=== PATIENT | male | born 1965 ===

== ENCOUNTER 2017-04-20 15:02 | Inpatient (IN) | payer MEDICARE, MEDICAID ==
[~2017-04-20] VITALS: Ht 190.5 cm; Wt 172.9 kg
[~2017-04-20 15:02] MED LIST: ADVA250A INH; ALBU.5I INH; ALBU17I INH; ASPI81 PO; BUME2TAB PO; HYDR10TA16 PO; LORA10TA7 PO; METO5TAB46 PO; NITR0.1D TD; PACE200T4 PO; PRED50TA PO; SPIR25 PO
[2017-04-20 15:15] VITALS: BP 129/68; PULSE 97; RESP 25; TEMP 98.7; O2SAT 100
[2017-04-20] MEDS ORDERED: FOLI800T PO (15:34)
[2017-04-20] MEDS ORDERED: DULO1CAP3 PO (15:34)
[2017-04-20] MEDS ORDERED: MONT10TA4 PO (15:34)
[2017-04-20] MEDS ORDERED: FERR325T18 PO (15:34)
[2017-04-20] MEDS ORDERED: METO50TA PO (15:34)
[2017-04-20] MEDS ORDERED: LYRI50CA PO (15:34)
[2017-04-20] MEDS ORDERED: OXYC-396 PO (15:34)
[2017-04-20] MEDS ORDERED: LISI2.5T3 PO (15:34)
[2017-04-20] MEDS ORDERED: SPIR25TA PO (15:34)
[2017-04-20] MEDS ORDERED: TIZA4CAP3 PO (15:34)
[2017-04-20] MEDS ORDERED: ALLO300T2 PO (15:34)
[2017-04-20] MEDS ORDERED: ATOR20TA15 PO (15:34)
[2017-04-20] MEDS ORDERED: TRAZ1TAB14 PO (15:34)
[2017-04-20 15:36] VITALS: BP_SYST 129; BP_SYST 150; BP_DIAS 63; BP_DIAS 68; PULSE 97; RESP 17; O2SAT 100
[2017-04-20] MEDS ORDERED: PLAV75TA29 PO (15:38)
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
--- NOTE | 2017-04-20 15:59 | RADRPT ---
EXAM DATE/TIME: 04/20/2017 15:43 [facility] COMPARISON: No previous studies available for comparison. INDICATIONS : Chest pain and shortness of breath. MEDICAL HISTORY : Myocardial infarction. Hypercholesterolemia. Chronic obstructive pulmonary disease. Asthma, CHF, Coronary artery disease SURGICAL HISTORY : Defibrillator, AICD, Pacemaker. ENCOUNTER: Initial ACUITY: 1 day PAIN SCORE: 6/10 LOCATION: Bilateral chest FINDINGS: Single lead AICD device in place. No significant focal pleural or parenchymal opacities. Cardiac silh ouette is mildly enlarged. Bony thorax is intact. CONCLUSION: 1. Compensated cardiomegaly. Skyler aVlle MD on April 20, 2017 at 15:56 Board Certified Radiologist. This report was verified electronically.
[2017-04-20 16:07] LABS: AUTOMATED NEUTROPHIL # 4.7 TH/MM3 (1.8-7.7); BASOPHIL % 0.7 % (0.0-2.0); EOSINOPHIL # 0.1 TH/MM3 (0-0.4); EOSINOPHIL % 0.9 % (0.0-4.0); HEMATOCRIT 37.7 % (39.0-51.0); HEMO FLAGS DIFF FINAL; LYMPH % 15.8 % (9.0-44.0); MEAN CELL VOLUME 77.8 FL (80.0-100.0); MEAN CORPUSCULAR HEMOGLOBIN 24.7 PG (27.0-34.0); MEAN CORPUSCULAR HGB CONC 31.7 % (32.0-36.0); MONO % 11.1 % (0.0-8.0); NEUT % 71.5 % (16.0-70.0); PLATELET COUNT 241 TH/MM3 (150-450); RED BLOOD COUNT 4.85 MIL/MM3 (4.50-5.90); RED CELL DISTRIBUTION WIDTH 19.7 % (11.6-17.2); WHITE BLOOD COUNT 6.6 TH/MM3 (4.0-11.0)
[2017-04-20 16:18] LABS: APTT (PATIENT) 24.1 SEC (24.3-30.1); PROTHROMBIN TIME - PATIENT 10.4 SEC (9.8-11.6)
[2017-04-20] MEDS ORDERED: MORPHINE SULFATE 4 MG/ML INJ IV PUSH ONE (16:30)
[2017-04-20 16:54] LABS: ANION GAP 5 MEQ/L (5-15); BICARBONATE 29.8 MEQ/L (21.0-32.0); BLOOD UREA NITROGEN 18 MG/DL (7-18); CHLORIDE 108 MEQ/L (98-107); GLOMERULAR FILTRATION RATE 50 ML/MIN (>89); MAGNESIUM 1.9 MG/DL (1.5-2.5); POTASSIUM 3.8 MEQ/L (3.5-5.1); SODIUM (NA) 143 MEQ/L (136-145)
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
[2017-04-20] MEDS ORDERED: IOHEXOL 350 MG/ML 10 ML VIAL (for RAD DIAG) IVCONTRAST ONE (19:10)
[2017-04-20 19:19] VITALS: BP 129/72; PULSE 80; RESP 18; O2SAT 100
--- NOTE | 2017-04-20 19:19 | PD ---
Data Data Last Documented VS Vital Signs Date Time Temp Pulse Resp B/P (MAP) Pulse Ox O2 Delivery O2 Flow Rate FiO2 04/20/17 15:36 97 17 129/68 (88) 100 Nasal Cannula 2.00 150/63 (92) 04/20/17 15:15 98.7 Orders Orders Electrocardiogram (04/20/17 15:26) Basic Metabolic Panel (Bmp) (04/20/17 15:26) Complete Blood Count With Diff (04/20/17 15:26) Magnesium (Mg) (04/20/17 15:26) Prothrombin Time / Inr (Pt) (04/20/17 15:26) Act Partial Throm Time (Ptt) (04/20/17 15:) Troponin I (04/20/17 15:) Chest, Single Ap (04/20/17 15:26) Ecg Monitoring (04/20/17 15:26) Bilateral Bp Monitoring (04/20/17 15:26) Iv Access Insert/Monitor (04/20/17 15:) Oximetry (04/20/17 15:26) Oxygen Administration (04/20/17 15:26) Sodium Chloride 0.9% Flush (Ns Flush) (04/20/17 15:30) Morphine Inj (Morphine Inj) (04/20/17 16:30) Us Leg Venous Doppler (04/20/17 ) D-Dimer (04/20/17 17:17) Ct Pulmonary Angiogram (04/20/17 ) Iohexol 350 Inj (Omnipaque 350 Inj) (04/20/17 19:10) Diet Heart Healthy (04/20/17 Dinner) Npo After Midnight W/ Po Meds (04/21/17 Breakfast) Labs Laboratory Tests Test 04/20/17 15:50 White Blood Count 6.6 TH/MM3 Red Blood Count 4.85 MIL/MM3 Hemoglobin 12.0 GM/DL Hematocrit 37.7 % Mean Corpuscular Volume 77.8 FL Mean Corpuscular Hemoglobin 24.7 PG Mean Corpuscular Hemoglobin Concent 31.7 % Red Cell Distribution Width 19.7 % Platelet Count 241 TH/MM3 Mean Platelet Volume 8.1 FL Neutrophils (%) (Auto) 71.5 % Lymphocytes (%) (Auto) 15.8 % Monocytes (%) (Auto) 11.1 % Eosinophils (%) (Auto) 0.9 % Basophils (%) (Auto) 0.7 % Neutrophils # (Auto) 4.7 TH/MM3 Lymphocytes # (Auto) 1.0 TH/MM3 Monocytes # (Auto) 0.7 TH/MM3 Eosinophils # (Auto) 0.1 TH/MM3 Basophils # (Auto) 0.0 TH/MM3 CBC Comment DIFF FINAL Differential Comment Prothrombin Time 10.4 SEC Prothromb Time International Ratio 1.0 RATIO Activated Partial Thromboplast Time 24.1 SEC D-Dimer Quantitative (PE/DVT) 0.88 MG/L FEU Blood Urea Nitrogen 18 MG/DL Creatinine 1.48 MG/DL Random Glucose 105 MG/DL Calcium Level 8.3 MG/DL Magnesium Level 1.9 MG/DL Sodium Level 143 MEQ/L Potassium Level 3.8 MEQ/L Chloride Level 108 MEQ/L Carbon Dioxide Level 29.8 MEQ/L Anion Gap 5 MEQ/L Estimat Glomerular Filtration Rate 50 ML/MIN Troponin I LESS THAN 0.02 NG/ML MDM Supervised Visit with [facility]: Yes Narrative Course The history, exam, and medical decision-making in the associated midlevel provider note were completed with my assistance. I reviewed and agree with the findings presented. I attest that I had a [id number] encounter with the patient on the same day, and personally performed and documented my assessment and findings in the medical record. *My assessment and Findings: This is a 51-year-old male who presents to the emergency department with left-sided chest discomfort. He did have a hip replacement over the summer. He is morbidly obese and has swelling of the right calf. Ultrasound of the right calf was negative. Labs were obtained including a troponin which was reassuring. EKG is nonischemic. Patient will be admitted to the chest pain center CT pulmonary angiogram is reassuring for risk stratification serial enzymes. He says he did have a stress test earlier this year but it was not normal. Diagnosis Primary Impression: Atypical chest pain Condition: Stable Miranda Ho MD Apr 20, 2017 19:19
--- NOTE | 2017-04-20 19:30 | RADRPT ---
EXAM DATE/TIME: 04/20/2017 18:57 [facility] COMPARISON: No previous studies available for comparison. INDICATIONS : Chest pain. IV CONTRAST: 75 cc Omnipaque 350 (iohexol) IV RADIATION DOSE: 25.48 CTDIvol (mGy) MEDICAL HISTORY : Congestive heart failure. SURGICAL HISTORY : Pacemaker. ENCOUNTER: Initial ACUITY: 1 day PAIN SCALE: 8/10 LOCATION: chest TECHNIQUE: Volumetric scanning of the chest was performed using a pulmonary embolism protocol MIP images were re constructed. Using automated exposure control and adjustment of the mA and/or kV according to patien t size, radiation dose was kept as low as reasonably achievable to obtain optimal diagnostic quality images. DICOM format image data is available electronically for review and comparison. Follow-up recommendations for detected pulmonary nodules are based at a minimum on nodule size and pa tient risk factors according to Fleischner Society Guidelines. FINDINGS: PULMONARY ARTERIES: No filling defects are seen in the pulmonary arteries through the segmental level. LUNGS: There is no consolidation or pneumothorax . No concerning pulmonary nodule is visualized. PLEURAE: There is no pleural thickening or pleural effusion. MEDIASTINUM: There is good visualization of the great vessels of the middle mediastinum. No evidence of mediastin al or hilar adenopathy/mass. Cardiomegaly and coronary artery calcifications are noted. MUSCULOSKELETAL: Mild degenerative changes and scoliosis of the thoracic spine are noted. MISCELLANEOUS: The visualized upper abdominal organs demonstrate no acute abnormality. Left subclavian AICD has its tip in the right ventricle. CONCLUSION: 1. No evidence of pulmonary embolism. 2. Cardiomegaly and coronary artery calcifications. 3. Mild degenerative changes and scoliosis of the thoracic spine are noted. Brad Manzo MD on April 20, 2017 at 19:25 Board Certified Radiologist. This report was verified electronically.
[2017-04-20 20:56] LABS: CREATINE KINASE 62 U/L (39-308)
[2017-04-20 21:07] VITALS: BP 123/73; PULSE 85; RESP 19; TEMP 98.3; O2SAT 100
[2017-04-20 23:27] LABS: CREATINE KINASE 74 U/L (39-308)
[2017-04-20 23:48] VITALS: BP 119/63; PULSE 90; RESP 19; TEMP 98.4; O2SAT 98
[2017-04-21] VITALS (11 sets, daily range): BP systolic 92–127; BP diastolic 45–68; PULSE 71–100; RESP 17–20; TEMP 97.7–98.8; O2SAT 95–99
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
[2017-04-21] MEDS: METOPROLOL TARTRATE 50 MG TAB PO SCH ×2 (09:06→21:00)
[2017-04-21] MEDS: DULoxetine HCl DR 60 MG CAP PO SCH (09:06)
[2017-04-21] MEDS: FOLIC ACID 1 MG TAB PO SCH (09:06)
[2017-04-21] MEDS: SPIRONOLACTONE 25 MG TAB PO SCH (09:06)
[2017-04-21] MEDS: SODIUM CHLORIDE 0.9% FLUSH 10 ML FLUSH IVF PRN (09:06)
[2017-04-21] MEDS: LISINOPRIL 5 MG TAB PO SCH (09:06)
[2017-04-21] MEDS: CLOPIDOGREL 75 MG TAB PO SCH (09:06)
[2017-04-21] MEDS: FERROUS SULFATE 325 MG (65 MG ELEMENTAL IRON) TAB PO SCH (09:06)
[2017-04-21] MEDS ORDERED: REGADENOSON INJ 0.4 MG/5 ML SYR ONE (09:37)
--- NOTE | 2017-04-21 12:29 | RADRPT ---
EXAM DATE/TIME: 04/21/2017 09:50 [facility] COMPARISON: No previous studies available for comparison. INDICATIONS : Chest pain. Angina. DOSE: 35 mCi Tc99m Myoview at stress. 11 mCi Tc99m Myoview at rest. 0.4 mg Lexiscan STRESS SYMPTOMS: Shortness of breath, neck tightness. EJECTION FRACTION: 32% MEDICAL HISTORY : Chronic obstructive pulmonary disease. Congestive heart failure. Diabetes mellitus type 2. SURGICAL HISTORY : Pacemaker. ENCOUNTER: Initial ACUITY: 1 day PAIN SCALE: 7/10 LOCATION: Left midsternal TECHNIQUE: The patient underwent pharmacologic stress with infusion of prescribed dose. Continuous ECG tracing was monitored during stress. Gated SPECT imaging was performed after stress and conventional SPECT i maging was performed at rest. The examination was performed on a SPECT/CT scanner, both attenuation and non-corrected datasets were reviewed. FINDINGS: DISTRIBUTION: The maximum perfused segment at stress is in the wall. PERFUSION STUDY: Fixed defect in the apical wall. There is redistribution in the anterior wall near the base. GATED STUDY: Dilated ventricle with global hypokinesia and EF of 32%. CONCLUSION: 1. Redemonstration of dilated ventricle with global hypokinesia. EF of 32%. 2. 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 RISK CATEGORY: High (>3% Annual Mortality Rate) Skyler Valle MD on April 21, 2017 at 12:23 Board Certified Radiologist. This report was verified electronically.
[2017-04-21] MEDS: NITROGLYCERIN 2% OINT 1 GM PACKET TOPICAL SCH ×2 (14:29→17:49)
[2017-04-21] MEDS ORDERED: ZOLPIDEM TARTRATE 5 MG TAB PO PRN (15:00)
[2017-04-21] MEDS ORDERED: oxyCODONE/ACETAMINOPHEN 10 MG/325 MG TAB PO PRN (15:00)
[2017-04-21] MEDS ORDERED: LACTULOSE SYRUP 20 GM/30 ML CUP PO PRN (15:00)
[2017-04-21] MEDS ORDERED: SENNOSIDES 8.6 MG TAB PO PRN (15:00)
[2017-04-21] MEDS ORDERED: NALOXONE HCL 0.4 MG/ML AMP IV PUSH PRN (15:00)
[2017-04-21] MEDS ORDERED: SODIUM CHLORIDE 0.9% FLUSH 10 ML FLUSH IV FLUSH PRN (15:00)
[2017-04-21] MEDS ORDERED: ONDANSETRON HCL 4 MG/2 ML VIAL IVP PRN (15:00)
[2017-04-21] MEDS ORDERED: ACETAMINOPHEN 325 MG TAB PO PRN (15:00)
[2017-04-21] MEDS ORDERED: MAGNESIUM HYDROXIDE SUSP 30 ML CUP PO PRN (15:00)
[2017-04-21] MEDS ORDERED: MORPHINE SULFATE 4 MG/ML INJ IV PUSH PRN ×3 (15:00)
[2017-04-21] MEDS ORDERED: PROCHLORPERAZINE 25 MG SUPP RECTAL PRN (15:00)
[2017-04-21] MEDS ORDERED: BISACODYL 10 MG SUPP RECTAL PRN (15:00)
[2017-04-21] MEDS ORDERED: oxyCODONE/ACETAMINOPHEN 5 MG/325 MG TAB PO PRN (15:00)
[2017-04-21] MEDS ORDERED: diphenhydrAMINE HCL 25 MG CAP PO ONE (15:15)
--- NOTE | 2017-04-21 15:17 | TR ---
Date Performed: 04/21/2017 Time Performed: 10:30:56 DOCTOR: Walter Palafox DRUG LIST: CLINICAL HISTORY: ANGINA REASON FOR TEST: REASON FOR ENDING: OBSERVATION: CONCLUSION: Lexiscan stress test was performed under standard four minute protocol. Radionuclid e was injected one minute prior to ending the test. No electrocardiographic abormalities were present to suggest ischemia. Nuclear imaging and interpretation are pending. COMMENTS:
--- NOTE | 2017-04-21 15:21 | EKG ---
Date Performed: 04/20/2017 Time Performed: 22:18:35 PTAGE: 51 years EKG: Sinus rhythm LEFT BUNDLE BRANCH BLOCK ABNORMAL ECG PREVIOUS TRACING : 04/20/2017 19.46 Since previous tracing, no significant change noted DOCTOR: Walter Palafox Interpretating Date/Time 04/21/2017 15:20:15
--- NOTE | 2017-04-21 15:23 | EKG ---
Date Performed: 04/20/2017 Time Performed: 15:14:36 PTAGE: 51 years EKG: Sinus rhythm LEFT BUNDLE BRANCH BLOCK ABNORMAL ECG Compared to PREVIOUS TRACING ,LBBB is new. DOCTOR: Walter Palafox Interpretating Date/Time 04/21/2017 15:22:35
--- NOTE | 2017-04-21 15:24 | EKG ---
Date Performed: 04/20/2017 Time Performed: 19:46:48 PTAGE: 51 years EKG: Left bundle branch block ABNORMAL ECG PREVIOUS TRACING : 04/20/2017 15.14 Since previous tracing, no significant change noted DOCTOR: Walter Palafox Interpretating Date/Time 04/21/2017 15:23:57
[2017-04-21] MEDS: ASPIRIN 325 MG TAB PO SCH (15:31)
[2017-04-21] MEDS: ALLOPURINOL 300 MG TAB PO SCH (15:31)
[2017-04-21] MEDS: DOCUSATE SODIUM 50 MG/SENNA 8.6 MG TAB PO SCH (21:00)
[2017-04-21] MEDS: ATORVASTATIN 20 MG TAB PO SCH (21:23)
[2017-04-21] MEDS: traZODone HCL 50 MG TAB PO SCH (21:23)
[2017-04-21] MEDS: SODIUM CHLORIDE 0.9% FLUSH 10 ML FLUSH IV FLUSH SCH (21:23)
[2017-04-21] MEDS: MONTELUKAST SODIUM 10 MG TAB PO SCH (21:23)
[2017-04-22] VITALS (10 sets, daily range): BP systolic 94–134; BP diastolic 50–62; PULSE 72–84; RESP 18–22; TEMP 97.5–98.4; O2SAT 94–97
[2017-04-22 05:54] LABS: AUTOMATED NEUTROPHIL # 3.9 TH/MM3 (1.8-7.7); BASOPHIL % 0.8 % (0.0-2.0); EOSINOPHIL # 0.1 TH/MM3 (0-0.4); EOSINOPHIL % 1.6 % (0.0-4.0); HEMATOCRIT 34.8 % (39.0-51.0); HEMO FLAGS DIFF FINAL; LYMPHOCYTE # 0.9 TH/MM3 (1.0-4.8); MEAN CELL VOLUME 77.5 FL (80.0-100.0); MEAN CORPUSCULAR HEMOGLOBIN 23.8 PG (27.0-34.0); MEAN CORPUSCULAR HGB CONC 30.7 % (32.0-36.0); MONO % 10.9 % (0.0-8.0); NEUT % 70.7 % (16.0-70.0); PLATELET COUNT 216 TH/MM3 (150-450); RED BLOOD COUNT 4.49 MIL/MM3 (4.50-5.90); RED CELL DISTRIBUTION WIDTH 19.2 % (11.6-17.2); WHITE BLOOD COUNT 5.5 TH/MM3 (4.0-11.0)
[2017-04-22] MEDS: NITROGLYCERIN 2% OINT 1 GM PACKET TOPICAL SCH ×4 (06:00→17:32)
[2017-04-22 06:15] LABS: ALT (GPT) 17 U/L (12-78); ANION GAP 6 MEQ/L (5-15); AST (GOT) 11 U/L (15-37); BICARBONATE 29.3 MEQ/L (21.0-32.0); BLOOD UREA NITROGEN 14 MG/DL (7-18); CHLORIDE 108 MEQ/L (98-107); GLOMERULAR FILTRATION RATE 76 ML/MIN (>89); POTASSIUM 3.6 MEQ/L (3.5-5.1); SODIUM (NA) 143 MEQ/L (136-145)
[2017-04-22 06:24] LABS: ALKALINE PHOSPHATASE 121 U/L (45-117); FREE T4 0.74 NG/DL (0.76-1.46); TOTAL BILIRUBIN ADULT 0.3 MG/DL (0.2-1.0)
[2017-04-22] MEDS: DOCUSATE SODIUM 50 MG/SENNA 8.6 MG TAB PO SCH ×2 (08:29→21:00)
[2017-04-22] MEDS: METOPROLOL TARTRATE 50 MG TAB PO SCH ×2 (08:29→21:05)
[2017-04-22] MEDS: SPIRONOLACTONE 25 MG TAB PO SCH (08:29)
[2017-04-22] MEDS: CLOPIDOGREL 75 MG TAB PO SCH (08:29)
[2017-04-22] MEDS: DULoxetine HCl DR 60 MG CAP PO SCH (08:29)
[2017-04-22] MEDS: ASPIRIN 325 MG TAB PO SCH (08:29)
[2017-04-22] MEDS: FERROUS SULFATE 325 MG (65 MG ELEMENTAL IRON) TAB PO SCH (08:29)
[2017-04-22] MEDS: ALLOPURINOL 300 MG TAB PO SCH (08:29)
[2017-04-22] MEDS: LISINOPRIL 5 MG TAB PO SCH (08:30)
[2017-04-22] MEDS: SODIUM CHLORIDE 0.9% FLUSH 10 ML FLUSH IV FLUSH SCH ×2 (08:30→21:06)
[2017-04-22] MEDS: FOLIC ACID 1 MG TAB PO SCH (08:30)
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
[2017-04-22] MEDS: RESP: ALBUTEROL 2.5 MG/IPRATROPIUM 0.5 MG NEB (PRN) NEB (12:30)
--- NOTE | 2017-04-22 15:04 | HHI.PR ---
Subjective Remarks Cardiac enzymes and symptoms led to stress test. Stress test was abnormal. Plan for heart catheter tomorrow. Objective Vital Signs Date Time Temp Pulse Resp B/P (MAP) Pulse Ox O2 Delivery O2 Flow Rate FiO2 04/22/17 12:45 82 04/22/17 12:32 95 21 04/22/17 11:50 97.5 80 20 94/50 (65) 95 04/22/17 08:31 82 04/22/17 07:44 97.6 74 20 115/58 (77) 97 04/22/17 03:23 98.0 76 18 108/51 (70) 95 04/21/17 23:30 97.7 79 18 122/59 (80) 95 04/21/17 20:22 98.4 79 17 92/45 (61) 97 04/21/17 19:36 21 04/21/17 16:25 100 04/21/17 15:35 98.1 99 20 122/65 (84) 95 I/O 04/21/17 04/21/17 04/21/17 04/22/17 04/22/17 04/22/17 07:00 15:00 23:00 07:00 15:00 23:00 Intake Total 240 ml Output Total 450 ml 200 ml Balance -450 ml -200 ml 240 ml Intake Oral 240 ml Output Urine Total 450 ml 200 ml # Voids 1 1 Result Diagram: 04/22/17 0507 04/22/17 0507 Objective Remarks GENERAL: NAD, A&Ox3 HEAD: Normocephalic. NECK: Supple, trachea midline. No lymphadenopathy. EYES: No scleral icterus. No injection or drainage. CARDIOVASCULAR: Regular rate and rhythm without murmurs, gallops, or rubs. RESPIRATORY: Breath sounds equal bilaterally. No accessory muscle use. GASTROINTESTINAL: Abdomen soft, non-tender, nondistended. MUSCULOSKELETAL: No cyanosis, or edema. SKIN: Warm and dry. NEURO: No focal neurological deficitis. A/P Problem List: (1) Angina at rest ICD Code: I20.8 - Other forms of angina pectoris (2) Acute coronary syndrome ICD Code: I24.9 - Acute ischemic heart disease, unspecified (3) Atypical chest pain ICD Code: R07.89 - Other chest pain Status: Acute Assessment and Plan Assessment and Plan 51-year-old male admitted secondary to chest pain Chest pain Angina Suspected acute coronary syndrome Congestive heart failure CAD Patient failed stress test Plan for her Tomorrow Cardiology following History of ejection fraction 26% Continue Plavix Hyperlipidemia Continue statin Chronic back pain No change to baseline treatment COPD No exacerbation Continue rosa milner Severe obesity Continue to work at weight loss DVT prophylaxis Patient on Plavix SCDs Luis Stanton MD Apr 22, 2017 15:04
[2017-04-22] MEDS ORDERED: diphenhydrAMINE HCL 50 MG/ML VIAL IV PUSH ONE (15:15)
[2017-04-22] MEDS: SODIUM CHLORIDE 0.9% FLUSH 10 ML FLUSH IVF PRN (15:34)
[2017-04-22] MEDS: MONTELUKAST SODIUM 10 MG TAB PO SCH (21:05)
[2017-04-22] MEDS: ATORVASTATIN 20 MG TAB PO SCH (21:05)
[2017-04-22] MEDS: traZODone HCL 50 MG TAB PO SCH (21:05)
[2017-04-23] VITALS: BP 96/63; PULSE 78; RESP 21; TEMP 97.5; O2SAT 96
[2017-04-23 00:20] VITALS: O2SAT 93
[2017-04-23] MEDS: RESP: ALBUTEROL 2.5 MG/IPRATROPIUM 0.5 MG NEB (PRN) NEB (00:20)
[2017-04-23] MEDS: NITROGLYCERIN 2% OINT 1 GM PACKET TOPICAL SCH ×5 (00:32→23:16)
[2017-04-23 04:00] VITALS: BP 121/57; PULSE 77; PULSE 81; RESP 19; TEMP 98; O2SAT 96
[2017-04-23 08:00] VITALS: BP 139/67; PULSE 71; PULSE 79; RESP 18; TEMP 97.7; O2SAT 95
--- NOTE | 2017-04-23 08:27 | PD.CARD.PN ---
Subjective Subjective Remarks resting comfortably. no chest pain or sob. Objective Medications Current Medications Medications (Trade) Dose Ordered Sig/Souleymane Route Start Time Stop Time Status Last Admin (NS Flush) 2 ml UNSCH PRN IVF 04/20/17 15:30 04/22/17 15:34 (Lipitor) 20 mg HS PO 04/21/17 21:00 04/22/17 21:05 (Plavix) 75 mg DAILY PO 04/21/17 09:00 04/22/17 08:29 (Cymbalta Dr) 60 mg DAILY PO 04/21/17 09:00 04/22/17 08:29 (Ferrous Sulfate) 325 mg DAILY PO 04/21/17 09:00 04/22/17 08:29 (Folate) 1 mg DAILY PO 04/21/17 09:00 04/22/17 08:30 (Lopressor) 50 mg BID PO 04/21/17 09:00 04/22/17 21:05 (Singulair) 10 mg HS PO 04/21/17 21:00 04/22/17 21:05 (Aldactone) 25 mg DAILY PO 04/21/17 09:00 04/22/17 08:29 (Prinivil) 2.5 mg DAILY PO 04/21/17 09:00 04/22/17 08:30 (Desyrel) 150 mg HS PO 04/21/17 21:00 04/22/17 21:05 (Roxicodone) 20 mg Q4H PRN PO 04/21/17 09:00 04/23/17 05:44 (Nitroglycerin 2% Oint) 1 inch Q6HR TOPICAL 04/21/17 14:15 04/23/17 05:40 (Zyloprim) 300 mg DAILY PO 04/21/17 15:00 04/22/17 08:29 (Zanaflex) 8 mg Q8H PRN PO 04/21/17 15:00 (NS Flush) 2 ml UNSCH PRN IV FLUSH 04/21/17 15:00 (NS Flush) 2 ml BID IV FLUSH 04/21/17 21:00 04/22/17 21:06 (Tylenol) 650 mg Q4H PRN PO 04/21/17 15:00 (Zofran Inj) 4 mg Q6H PRN IVP 04/21/17 15:00 (Compazine Supp) 25 mg Q12H PRN RECTAL 04/21/17 15:00 (Ambien) 5 mg HS PRN PO 04/21/17 15:00 04/23/17 00:37 (Percocet 10-325 Mg) 1 tab Q6H PRN PO 04/21/17 15:00 (Morphine Inj) 2 mg Q3H PRN IV PUSH 04/21/17 15:00 (Morphine Inj) 4 mg Q3H PRN IV PUSH 04/21/17 15:00 (Morphine Inj) 4 mg Q3H PRN IV PUSH 04/21/17 15:00 (Narcan Inj) 0.4 mg UNSCH PRN IV PUSH 04/21/17 15:00 (Malena-Colace) 1 tab BID PO 04/21/17 21:00 04/22/17 08:29 (Milk Of Magnesia Liq) 30 ml Q12H PRN PO 04/21/17 15:00 (Senokot) 17.2 mg Q12H PRN PO 04/21/17 15:00 (Dulcolax Supp) 10 mg DAILY PRN RECTAL 04/21/17 15:00 (Lactulose Liq) 30 ml DAILY PRN PO 04/21/17 15:00 (Aspirin) 325 mg DAILY PO 04/21/17 15:15 04/22/17 08:29 (Duoneb Neb) 1 ampule Q6HR NEB PRN NEB 04/22/17 11:30 04/23/17 00:20 (Benadryl Inj) 25 mg Q6HR PRN IV PUSH 04/22/17 21:00 Vital Signs / I&O Vital Signs Date Time Temp Pulse Resp B/P (MAP) Pulse Ox O2 Delivery O2 Flow Rate FiO2 04/23/17 04:00 77 04/23/17 04:00 98.0 81 19 121/57 (78) 96 04/23/17 00:20 93 21 04/23/17 00:00 97.5 78 21 96/63 (74) 96 04/22/17 23:46 74 04/22/17 20:00 77 04/22/17 20:00 98.4 72 20 134/62 (86) 94 04/22/17 18:20 98.1 72 22 130/58 (82) 95 04/22/17 15:14 97.6 84 22 116/60 (78) 95 04/22/17 12:45 82 04/22/17 12:32 95 21 04/22/17 11:50 97.5 80 20 94/50 (65) 95 04/22/17 08:31 82 I/O 04/22/17 04/22/17 04/22/17 04/23/17 04/23/17 04/23/17 07:00 15:00 23:00 07:00 15:00 23:00 Intake Total 240 ml 0 ml Output Total 950 ml Balance 240 ml -950 ml Intake Oral 240 ml 0 ml Output Urine Total 950 ml # Voids 1 1 # Bowel Movements 0 Physical Exam GENERAL: SKIN: Warm and dry. HEAD: Atraumatic. Normocephalic. EYES: Pupils equal and round. No scleral icterus. No injection or drainage. ENT: No nasal bleeding or discharge. . NECK: Trachea midline. No JVD. CARDIOVASCULAR: Regular rate and rhythm. No murmurs RESPIRATORY: No accessory muscle use. Clear to auscultation. Breath sounds equal bilaterally. GASTROINTESTINAL: Abdomen soft, non-tender, nondistended. MUSCULOSKELETAL: Extremities without clubbing, cyanosis, or edema. No obvious deformities. NEUROLOGICAL: Awake and alert. No obvious cranial nerve deficits. Normal speech. PSYCHIATRIC: Appropriate mood and affect; insight and judgment normal. Laboratory Laboratory Tests Test 04/20/17 15:50 04/20/17 21:55 04/22/17 05:07 Prothrombin Time 10.4 SEC Prothromb Time International Ratio 1.0 RATIO Activated Partial Thromboplast Time 24.1 SEC D-Dimer Quantitative (PE/DVT) 0.88 MG/L FEU Total Creatine Kinase 74 U/L Troponin I LESS THAN 0.02 NG/ML White Blood Count 5.5 TH/MM3 Red Blood Count 4.49 MIL/MM3 Hemoglobin 10.7 GM/DL Hematocrit 34.8 % Mean Corpuscular Volume 77.5 FL Mean Corpuscular Hemoglobin 23.8 PG Mean Corpuscular Hemoglobin Concent 30.7 % Red Cell Distribution Width 19.2 % Platelet Count 216 TH/MM3 Mean Platelet Volume 7.8 FL Neutrophils (%) (Auto) 70.7 % Lymphocytes (%) (Auto) 16.0 % Monocytes (%) (Auto) 10.9 % Eosinophils (%) (Auto) 1.6 % Basophils (%) (Auto) 0.8 % Neutrophils # (Auto) 3.9 TH/MM3 Lymphocytes # (Auto) 0.9 TH/MM3 Monocytes # (Auto) 0.6 TH/MM3 Eosinophils # (Auto) 0.1 TH/MM3 Basophils # (Auto) 0.0 TH/MM3 CBC Comment DIFF FINAL Differential Comment Blood Urea Nitrogen 14 MG/DL Creatinine 1.03 MG/DL Random Glucose 105 MG/DL Total Protein 6.2 GM/DL Albumin 2.8 GM/DL Calcium Level 8.1 MG/DL Phosphorus Level 3.0 MG/DL Magnesium Level 2.0 MG/DL Alkaline Phosphatase 121 U/L Aspartate Amino Transf (AST/SGOT) 11 U/L Alanine Aminotransferase (ALT/SGPT) 17 U/L Total Bilirubin 0.3 MG/DL Sodium Level 143 MEQ/L Potassium Level 3.6 MEQ/L Chloride Level 108 MEQ/L Carbon Dioxide Level 29.3 MEQ/L Anion Gap 6 MEQ/L Estimat Glomerular Filtration Rate 76 ML/MIN Free Thyroxine 0.74 NG/DL Thyroid Stimulating Hormone 3rd Gen 1.640 uIU/ML Assessment and Plan Problem List: (1) Acute coronary syndrome ICD Codes: I24.9 - Acute ischemic heart disease, unspecified (2) Atypical chest pain ICD Codes: R07.89 - Other chest pain Status: Acute Assessment and Plan 51 yo M with CAD, afib, HTN and cardiomyopathy with AICD in place. chest pain- currently asymptomatic. abnormal stress test. will plan for [facility] this afternoon. light breakfast ok for this morning. Xochitl Garza Apr 23, 2017 08:27
[2017-04-23] MEDS: FOLIC ACID 1 MG TAB PO SCH (08:44)
[2017-04-23] MEDS: METOPROLOL TARTRATE 50 MG TAB PO SCH ×2 (08:44→21:34)
[2017-04-23] MEDS: FERROUS SULFATE 325 MG (65 MG ELEMENTAL IRON) TAB PO SCH (08:44)
[2017-04-23] MEDS: ASPIRIN 325 MG TAB PO SCH (08:44)
[2017-04-23] MEDS: DULoxetine HCl DR 60 MG CAP PO SCH (08:44)
[2017-04-23] MEDS: LISINOPRIL 5 MG TAB PO SCH (08:45)
[2017-04-23] MEDS: ALLOPURINOL 300 MG TAB PO SCH (08:45)
[2017-04-23] MEDS: CLOPIDOGREL 75 MG TAB PO SCH (08:45)
[2017-04-23] MEDS: SPIRONOLACTONE 25 MG TAB PO SCH (08:45)
[2017-04-23] MEDS: DOCUSATE SODIUM 50 MG/SENNA 8.6 MG TAB PO SCH ×2 (08:45→21:33)
[2017-04-23] MEDS: diphenhydrAMINE HCL 50 MG/ML VIAL IV PUSH PRN ×2 (08:56→21:33)
[2017-04-23] MEDS: SODIUM CHLORIDE 0.9% FLUSH 10 ML FLUSH IV FLUSH SCH ×2 (11:46→21:36)
[2017-04-23 12:00] VITALS: BP 133/62; PULSE 65; RESP 18; TEMP 97.3; O2SAT 96
--- NOTE | 2017-04-23 14:57 | HHI.PR ---
Subjective Remarks Patient seen this morning at 9 AM. Says he is feeling well. Denies any chest pain or shortness of breath currently. Objective Vital Signs Date Time Temp Pulse Resp B/P (MAP) Pulse Ox O2 Delivery O2 Flow Rate FiO2 04/23/17 12:00 97.3 65 18 133/62 (85) 96 04/23/17 08:00 79 04/23/17 08:00 97.7 71 18 139/67 (91) 95 04/23/17 04:00 77 04/23/17 04:00 98.0 81 19 121/57 (78) 96 04/23/17 00:20 93 21 04/23/17 00:00 97.5 78 21 96/63 (74) 96 04/22/17 23:46 74 04/22/17 20:00 77 04/22/17 20:00 98.4 72 20 134/62 (86) 94 04/22/17 18:20 98.1 72 22 130/58 (82) 95 04/22/17 15:14 97.6 84 22 116/60 (78) 95 I/O 04/22/17 04/22/17 04/22/17 04/23/17 04/23/17 04/23/17 07:00 15:00 23:00 07:00 15:00 23:00 Intake Total 240 ml 0 ml Output Total 950 ml Balance 240 ml -950 ml Intake Oral 240 ml 0 ml Output Urine Total 950 ml # Voids 1 1 # Bowel Movements 0 Result Diagram: 04/22/17 0507 04/22/17 0507 Objective Remarks GENERAL: Patient sitting up in bed. Appears comfortable. SKIN: Warm and dry. HEAD: Normocephalic. EYES: No scleral icterus. No injection or drainage. NECK: Supple, trachea midline. No JVD. CARDIOVASCULAR: Regular rate and rhythm without murmurs, gallops, or rubs. RESPIRATORY: Breath sounds equal bilaterally. No accessory muscle use. GASTROINTESTINAL: Abdomen soft, non-tender, nondistended. MUSCULOSKELETAL: No cyanosis, or edema. BACK: Nontender without obvious deformity. No CVA tenderness. A/P Assessment and Plan 51-year-old male admitted secondary to chest pain //Chest pain //Angina //Suspected acute coronary syndrome //Congestive heart failure //CAD Patient failed stress test Cardiology following History of ejection fraction 26% Continue Plavix = Plan for cardiac catheterization this afternoon as per cardiology. Appreciate assistance. //Hyperlipidemia Continue statin //Chronic back pain No change to baseline treatment //COPD No exacerbation Continue duo nebs //Severe obesity Continue to work at weight loss Discharge Planning Home pending cardiology clearance. Catheterization today. Jose Diaz MD Apr 23, 2017 14:57
[2017-04-23] MEDS ORDERED: HEPARIN SODIUM - IV 10,000 UNITS/10 ML VIAL ONE (15:52)
[2017-04-23] MEDS ORDERED: MIDAZOLAM HCL 2 MG/2 ML VIAL ONE (15:52)
[2017-04-23 15:54] LABS: HEMOGLOBIN A1b 1.1 %; HEMOGLOBIN Ao 84.7 %; HEMOGLOBIN F 1.1 %; HEMOGLOBIN LA1C 1.9 %; HEMOGLOBIN P3 3.8 %
--- NOTE | 2017-04-23 16:15 | CATHPROC ---
[employer] HIS Report Study Information Study Number Scheduled Start Study Start [id number] 04/23/2017 Apr 23 2017 3:34PM Referring Institution Admit Source Facility Department 1 Emergency department [facility] - [facility] Physician and Clinical Staff Initial Henrik Schulz Warehouse Operator Bo Haji,RN Recorder Florinda Fraser,RT(R) (BS) Momoub Roselyn Galarza RCIS TECH2 Procedures Performed Procedure Location (Site) Vessel Name Coronary Angiograms LCA Left Coronary Coronary Angiograms RCA Right Coronary L Heart Cath Wire insertion Radial (right) Radial Art. Equipment Time Senior Embedded Software Engineer Description Size Mfg Part Number Used/Scraped TRANSDUCER, TRUWAVE [id number] 15:36 BABIN BAPTISTE * Used W/STOCKCOCK *[id number] *[id number] 15:36 Retail Rocket PACK, CCL CUSTOM * Used *[id number] 15:36 Retail Rocket SUPPORT, ARTERIAL ADULT [id number] *[id number] Used [id number] 15:36 WISHI PACER PEN, SKIN DUAL W/ RULER * Used *[id number] 16:05 MEDTRONIC JL 3.5 DXTERITY CATHETER FR 5 [id number] Used BAND, RADIAL COMPRESSION TR [id number] 16:08 [place] 29CM Used LARGE 29 *[id number] SHEATH, FR6 RADIAL PRELUDE 15:36 [place] FR 6 [id number] Used EASE 11CM SHEATH, FR6 RADIAL PRELUDE 16:00 [place] FR 6 [id number] Used EASE 11CM [id number] 15:36 [place] WIRE, EXCHANGE 260CM 3MMJ 260CM Used *[id number] 15:36 NYCOMED OMNIPAQUE, 350 MG, 150ML 150ML [id number] Used [id number] 15:36 ALCAZAR oneforty BLANKET,WARM AIR CCL * Used *[id number] History: Current Medications Medication Dosage/Unit Route Frequency Last Date/Time Taken Statins (any) Beta Josef ASA PLAVIX History: Allergies Allergy Reaction No Known Allergies History: Risk Factors Family History of Hypertension Dyslipidemia Previous [place] Previous Heart Failure Premature CAD No No No No No Prior Valve Prior PCI Prior CABG Surgery No No No Cerebrovascular Peripheral Artery Chronic Lung On Dialysis Diabetes Disease Disease Disease No No No No No History: Stress Tests Stress or Imaging Studies Performed Yes Standard Exercise Stress Test No Stress Echo No Stress Test SPECT Yes Stress Test CMR No Cardiac CTA Coronary Calcium Score No No History: Other Current Smoker No Labs Hgb (g/dl) Hct (%) WBC (l/cumm) Platelets (thousands) 11.60-17.00 35.00-51.00 4.00-11.00 150.00-450.00 10.7 34.8 5.5 216 Glucose (mg/dl) BUN (mg/dl) Creatinine (mg/dl) BUN:Creatinine (1:x) 74.00-106.00 7.00-18.00 0.50-1.30 10.00-20.00 105 14 1.0 14 Na (meq/l) K (meq/l) 136.00-145.00 3.50-5.10 143 3.6 INR (PTT:PT) 0.90-1.10 1 Troponin I (ng/ml) CPK (u/l) CPK-MB (ng/ML) 0.02-0.05 26.00-308.00 0.50-3.60 0.02 74 Not Drawn Medication Medication Total Dose (Bolus/Oral) Medication Total Dosage/Unit 1% XYLOCAINE 1 mL FENTANYL 50 mcg HEPARIN 2000 units NTG (IC) 200 mcg VERSED 1 mg Medications (Bolus/Oral) Medication Time Given Dosage/Unit Administered By Reason VERSED 04/23/2017 3:55:53 PM 1 mg Bo Haji 1 mg VERSED given in lab by Bo Haji RN in Left Antecubital via Peripheral IV. FENTANYL 04/23/2017 3:55:58 PM 50 mcg Bo Haij 50 mcg FENTANYL given in lab by Bo Haji RN in Left Antecubital via Peripheral IV. 1% XYLOCAINE 04/23/2017 3:58:40 PM 1 mL Henrik Lua 1 mL 1% XYLOCAINE given in lab by Henrik Lua in Right Radial via Subcutaneous. NTG (IC) 04/23/2017 4:01:04 PM 200 mcg Henrik Lua 200 mcg NTG (IC) given in lab by Henrik Lua in Right Radial via Intra-arterial. HEPARIN 04/23/2017 4:01:54 PM 2000 units Bo Haji 2000 units HEPARIN given in lab by Bo Haji, OSCAR in Left Antecubital via Peripheral IV. Medication (Drip) Medication Time Given Dosage/Unit Concentration/Unit Diluent (ml) Solutio n IV Solutions 04/23/2017 3:34:55 PM 0 mL (IV) 500 NaCl .9 IV Solutions given in lab by Bo Haji RN in Left Antecubital via Peripheral IV. Pump/Drip Flow = 30 ml/hr using NaCl .9. Initial Case Assessment Cardiovascular HR Rhythm NIBP Chest Pain 68 reg 137/72 0 Edema Present Skin color Skin None Normal Warm Dry Circulatory - Right Pulses Dorsalis Pedis Femoral Radial 2 2 2 Scale (0,1,2,3,4,d) Scale (0,1,2,3,4,d) Circulatory - Lower Extremities Color Lower Right Color Lower Left Normal Normal Neurological State Oriented to time-place- Alert Moves all extremities person Respiration - General Respiration Rate SpO2 (%) (B/min) 13 98 Chronological Log Time Study Chronological Log 15:32:11 Patient arrived via Bed. 15:32:16 Patient Name, D.O.B, / Armband Verified By R.N. 15:34:18 Consent signed by the physician and the patient and verified by the [employer] [facility] staff. 15:34:20 Pre-op and post- op instructions given; patient acknowledges understanding of instructions. 15:34:21 Verbal Stimulation=2 Physical Stimulation=2 Airway=2 Respiration=2 TOTAL=8. (0=absent, 1=li mited, 2=present) 15:34:34 Presedation assessment performed by [employer] [facility] RN. 15:34:41 Allens test performed on the right radial and ulnar artery. 15:34:46 Patient has been NPO for More than 6Hrs. 15:34:49 Skin Breakdown non per pt 15:34:51 Patient Warmer Placed on the Table. 15:34:52 Buck Prominences Protected 15:34:53 A # 20 IV was noted in the Antecubital (left). Grade = 0 IV Solutions given in lab by Bo Haji, RN in Left Antecubital via Peripheral IV. Pump/Dri p Flow = 30 ml/hr using 15:34:55 NaCl .9. 15:34:58 History and physical on the chart or being dictated. Assessment: Initial Case, HR=68 BPM, Rhythm=reg, DQXD=152/72 mmhg, Chest Pain=0, Edema=None, Co jerry=Normal, Skin = Warm, Dry Right Pulses: Edward Ped=2, Femoral=2, Radial=2 15:35:00 Lower Right Extremities: Color=Normal Lower Left Extremities: Color=Normal Neurological: State=Alert, Ox3, BERMUDEZ Respiration: Resp=13 B/min, SpO2=98 % Vitals capture started with the following parameters, Patient=Adult, Interval=5 min, Initial Pr vleczd=016 mmHg, 15:40:56 Deflation Rate=5 mmHg, Cuff placed on Left Arm 15:42:54 HR=68 bpm, LEPK=809/72 mmhg, SpO2=95.0 %, Pain=0, Nilton=10, Juárez=2 15:46:33 HR=74 bpm, ZFIQ=217/79 mmhg, SpO2=98.0 %, Resp=11 B/min, Pain=0, Nilton=10, Juárez=2 15:49:21 Right Radial and right groin prepped with 2% chlorhexidine, and draped after a 3 min. waiti ng time. 15:51:34 HR=71 bpm, PPEB=069/88 mmhg, SpO2=99.0 %, Resp=15 B/min, Pain=0, Nilton=10, Juárez=2 15:52:23 Reference ECG taken 15:55:53 1 mg VERSED given in lab by Bo Haji, OSCAR in Left Antecubital via Peripheral IV. 15:55:58 50 mcg FENTANYL given in lab by Bo Haji RN in Left Antecubital via Peripheral IV. 15:56:31 HR=77 bpm, WLAX=468/92 mmhg, SpO2=99 %, Resp=27 B/min, Pain=0, Nilton=10, Juárez=2 15:56:43 Pressure channel 1 zero failed. 15:56:50 Pressure channel 1 zeroed. Time Out. Correct patient, correct procedure, correct physician, power injector not loaded with contrast with surgical 15:58:31 team present. Time Out Concurred by MD and individual staff in procedure. 15:58:39 Case Start 15:58:40 1 mL 1% XYLOCAINE given in lab by Henrik Lua in Right Radial via Subcutaneous. 15:59:29 Access site was right Radial Artery. 16:00:44 In the Radial (right) the SHEATH, FR6 RADIAL PRELUDE EASE 11CM FR [address] by Henrik Lua. 16:01:04 200 mcg NTG (IC) given in lab by Henrik Lua in Right Radial via Intra-arterial. 16:01:34 HR=68 bpm, WJEN=735/77 mmhg, SpO2=97.0 %, Resp=12 B/min, Pain=0, Nilton=10, Juárez=2 A JR 5.0 INFINITI CATHETER FR 5 was advanced over a wire. OMNIPAQUE, 350 MG, 150ML 150ML was us ed for 16:01:42 injections. 16:01:54 2000 units HEPARIN given in lab by Bo Haji RN in Left Antecubital via Peripheral IV . Recorded Pressure: LV, HR=75, Condition=Condition 1 16:02:14 (Left Ventricle) LV 104/7/12 Recorded Pressure: LV, Ao, HR=74, Condition=Condition 1 16:02:19 (Left Ventricle) LV 108/9/14, (Aorta) Ao 100/65/80 16:02:55 The RCA was injected and visualized at various angles. OMNIPAQUE, 350 MG, 150ML 150ML used . After removing the current catheter a JL 3.5 DXTERITY CATHETER FR 5 was advanced over a WIRE, E XCHANGE 260CM 16:03:52 3MMJ 260CM. 16:05:04 The LCA was injected and visualized at various angles. OMNIPAQUE, 350 MG, 150ML 150ML used . 16:06:33 HR=83 bpm, AXJF=883/73 mmhg, SpO2=97.0 %, Resp=11 B/min, Pain=0, Nilton=10, Juárez=2 16:06:42 A WIRE, EXCHANGE 260CM 3MMJ 260CM was inserted via Radial (right). 16:06:50 Catheter was removed 16:06:52 Wire removed 16:06:56 Case End 16:07:13 Catheter(s) removed without difficulty Radial Compression Device Used. 14 mLs of air placed in BAND, RADIAL COMPRESSION TR LARGE 29 29 CM. Affected 16:07:17 hand 100 % O2 saturation. 16:07:58 No case complications noted. 16:08:12 Bedside Report will be given. 16:08:16 A Left Heart Cath was performed. 16:11:34 HR=86 bpm, MFIP=108/73 mmhg, SpO2=99.0 %, Resp=16 B/min, Pain=0, Nilton=10, Juárez=2 16:17:41 Patient moved to stretcher End Study - Contrast Media Used In Study Contrast Total Opened (mL) Total Used (mL) Total Wasted (mL) Omnipaque 30 30 0 End Study - Maximum Contrast Load Max Contrast Load (mL) 869.1 End Study - Radiation Exposure Fluoro Time (minutes) 1.0 End Study - Sheaths Sheaths Pulled By Sheath Hold Time (min) Roselyn Galarza End Study - Patient Disposition Complications Transferred To Interventional Outcome No [employer] Holding No attempt made
--- NOTE | 2017-04-23 16:49 | MA ---
cc: DIOR SCHILLING DATE 04/23/2017 INDICATION Chest pain. PROCEDURE PERFORMED 1. Fluoroscopy with interpretation. 2. Coronary angiography. 3. Left heart catheterization. METHOD Risks, benefits and alternatives discussed with the patient. The patient understood and consented to the procedure. DETAILS OF PROCEDURE The patient brought to the catheterization lab and placed on the catheterization table. Right wrist was prepped and draped in sterile fashion. The right wrist was anesthetized with 2% Lidocaine. The right radial artery was cannulated and a 6 [place] 7 cm sheath was placed without difficulty. 200 micrograms of 100 mcg of nitroglycerine in addition to 3000 units of intravenous heparin were administered. LEFT HEART CATHETERIZATION Intraventricular hemodynamics measured at 110/12 mmHg. CORONARY ANGIOGRAPHY 1. Left main coronary artery is angiographically normal. 2. The left anterior descending coronary artery has minor luminal irregularities in the mid segment. Diagonal branch angiographically normal. 3. Left circumflex angiographically normal. 4. Right coronary is a dominant vessel giving rise to a posterior descending branch. Right coronary artery has mild luminal irregularities. CONCLUSIONS Mild amount of obstructive coronary disease. PLAN We will monitor the patient closely for post procedural complications. 5. Normal left-sided filling pressures. PLAN The patient will be monitored closely for any post-procedural complications. Stress test was a false positive. The patient has nonischemic cardiomyopathy with severely reduced ejection fraction but defibrillator in place and seems to be well-compensated from a congestive heart failure standpoint. Resume prior medical regimen. Follow up with outpatient etcher aircraft. MD AL Jensen/SHANNAN /4:16 PM /4:31 PM STEVEN
[2017-04-23] MEDS ORDERED: IOHEXOL 350 MG/ML 50 ML BTL (for Cath Lab) OTHER ONE (16:54)
[2017-04-23 20:00] VITALS: BP 99/48; PULSE 92; RESP 18; TEMP 97.5; O2SAT 95
[2017-04-23] MEDS: ATORVASTATIN 20 MG TAB PO SCH (21:34)
[2017-04-23] MEDS: traZODone HCL 50 MG TAB PO SCH (21:35)
[2017-04-23] MEDS: MONTELUKAST SODIUM 10 MG TAB PO SCH (21:35)
[2017-04-24] VITALS (7 sets, daily range): BP systolic 97–114; BP diastolic 54–64; PULSE 75–93; RESP 18–20; TEMP 97.5–97.9; O2SAT 93–97
[2017-04-24] MEDS: NITROGLYCERIN 2% OINT 1 GM PACKET TOPICAL SCH ×2 (04:41→12:00)
[2017-04-24] MEDS: diphenhydrAMINE HCL 50 MG/ML VIAL IV PUSH PRN (04:50)
[2017-04-24] MEDS: RESP: ALBUTEROL 2.5 MG/IPRATROPIUM 0.5 MG NEB (PRN) NEB (05:23)
--- NOTE | 2017-04-24 08:27 | PD.CARD.PN ---
Subjective Subjective Remarks resting comfortably. no chest pain or sob. Objective Medications Current Medications Medications (Trade) Dose Ordered Sig/Souleymane Route Start Time Stop Time Status Last Admin (NS Flush) 2 ml UNSCH PRN IVF 04/20/17 15:30 04/22/17 15:34 (Lipitor) 20 mg HS PO 04/21/17 21:00 04/23/17 21:34 (Plavix) 75 mg DAILY PO 04/21/17 09:00 04/23/17 08:45 (Cymbalta Dr) 60 mg DAILY PO 04/21/17 09:00 04/23/17 08:44 (Ferrous Sulfate) 325 mg DAILY PO 04/21/17 09:00 04/23/17 08:44 (Folate) 1 mg DAILY PO 04/21/17 09:00 04/23/17 08:44 (Lopressor) 50 mg BID PO 04/21/17 09:00 04/23/17 21:34 (Singulair) 10 mg HS PO 04/21/17 21:00 04/23/17 21:35 (Aldactone) 25 mg DAILY PO 04/21/17 09:00 04/23/17 08:45 (Prinivil) 2.5 mg DAILY PO 04/21/17 09:00 04/23/17 08:45 (Desyrel) 150 mg HS PO 04/21/17 21:00 04/23/17 21:35 (Roxicodone) 20 mg Q4H PRN PO 04/21/17 09:00 04/24/17 04:40 (Nitroglycerin 2% Oint) 1 inch Q6HR TOPICAL 04/21/17 14:15 04/24/17 04:41 (Zyloprim) 300 mg DAILY PO 04/21/17 15:00 04/23/17 08:45 (Zanaflex) 8 mg Q8H PRN PO 04/21/17 15:00 (NS Flush) 2 ml UNSCH PRN IV FLUSH 04/21/17 15:00 (NS Flush) 2 ml BID IV FLUSH 04/21/17 21:00 04/23/17 21:36 (Tylenol) 650 mg Q4H PRN PO 04/21/17 15:00 (Zofran Inj) 4 mg Q6H PRN IVP 04/21/17 15:00 (Compazine Supp) 25 mg Q12H PRN RECTAL 04/21/17 15:00 (Ambien) 5 mg HS PRN PO 04/21/17 15:00 04/23/17 00:37 (Percocet 10-325 Mg) 1 tab Q6H PRN PO 04/21/17 15:00 (Morphine Inj) 2 mg Q3H PRN IV PUSH 04/21/17 15:00 (Morphine Inj) 4 mg Q3H PRN IV PUSH 04/21/17 15:00 (Morphine Inj) 4 mg Q3H PRN IV PUSH 04/21/17 15:00 (Narcan Inj) 0.4 mg UNSCH PRN IV PUSH 04/21/17 15:00 (Malena-Colace) 1 tab BID PO 04/21/17 21:00 04/23/17 21:33 (Milk Of Magnesia Liq) 30 ml Q12H PRN PO 04/21/17 15:00 (Senokot) 17.2 mg Q12H PRN PO 04/21/17 15:00 (Dulcolax Supp) 10 mg DAILY PRN RECTAL 04/21/17 15:00 (Lactulose Liq) 30 ml DAILY PRN PO 04/21/17 15:00 (Aspirin) 325 mg DAILY PO 04/21/17 15:15 04/23/17 08:44 (Duoneb Neb) 1 ampule Q6HR NEB PRN NEB 04/22/17 11:30 04/24/17 05:23 (Benadryl Inj) 25 mg Q6HR PRN IV PUSH 04/22/17 21:00 04/24/17 04:50 Vital Signs / I&O Vital Signs Date Time Temp Pulse Resp B/P (MAP) Pulse Ox O2 Delivery O2 Flow Rate FiO2 04/24/17 05:23 97 21 04/24/17 04:00 97.7 85 18 97/54 (68) 94 04/24/17 03:56 90 04/24/17 00:40 75 04/24/17 00:00 97.9 76 18 114/63 (80) 94 04/23/17 20:00 97.5 92 18 99/48 (65) 95 04/23/17 12:00 97.3 65 18 133/62 (85) 96 I/O 04/23/17 04/23/17 04/23/17 04/24/17 04/24/17 04/24/17 07:00 15:00 23:00 07:00 15:00 23:00 Intake Total 0 ml Output Total 950 ml Balance -950 ml Intake Oral 0 ml Output Urine Total 950 ml # Voids 2 # Bowel Movements 0 Physical Exam GENERAL: SKIN: Warm and dry. HEAD: Atraumatic. Normocephalic. EYES: Pupils equal and round. No scleral icterus. No injection or drainage. ENT: No nasal bleeding or discharge. . NECK: Trachea midline. No JVD. CARDIOVASCULAR: Regular rate and rhythm. No murmurs RESPIRATORY: No accessory muscle use. Clear to auscultation. Breath sounds equal bilaterally. GASTROINTESTINAL: Abdomen soft, non-tender, nondistended. MUSCULOSKELETAL: Extremities without clubbing, cyanosis, or edema. No obvious deformities. NEUROLOGICAL: Awake and alert. No obvious cranial nerve deficits. Normal speech. PSYCHIATRIC: Appropriate mood and affect; insight and judgment normal. Laboratory Laboratory Tests Test 04/20/17 15:50 04/20/17 21:55 04/22/17 05:07 Prothrombin Time 10.4 SEC Prothromb Time International Ratio 1.0 RATIO Activated Partial Thromboplast Time 24.1 SEC D-Dimer Quantitative (PE/DVT) 0.88 MG/L FEU Total Creatine Kinase 74 U/L Troponin I LESS THAN 0.02 NG/ML White Blood Count 5.5 TH/MM3 Red Blood Count 4.49 MIL/MM3 Hemoglobin 10.7 GM/DL Hematocrit 34.8 % Mean Corpuscular Volume 77.5 FL Mean Corpuscular Hemoglobin 23.8 PG Mean Corpuscular Hemoglobin Concent 30.7 % Red Cell Distribution Width 19.2 % Platelet Count 216 TH/MM3 Mean Platelet Volume 7.8 FL Neutrophils (%) (Auto) 70.7 % Lymphocytes (%) (Auto) 16.0 % Monocytes (%) (Auto) 10.9 % Eosinophils (%) (Auto) 1.6 % Basophils (%) (Auto) 0.8 % Neutrophils # (Auto) 3.9 TH/MM3 Lymphocytes # (Auto) 0.9 TH/MM3 Monocytes # (Auto) 0.6 TH/MM3 Eosinophils # (Auto) 0.1 TH/MM3 Basophils # (Auto) 0.0 TH/MM3 CBC Comment DIFF FINAL Differential Comment Blood Urea Nitrogen 14 MG/DL Creatinine 1.03 MG/DL Random Glucose 105 MG/DL Total Protein 6.2 GM/DL Albumin 2.8 GM/DL Calcium Level 8.1 MG/DL Phosphorus Level 3.0 MG/DL Magnesium Level 2.0 MG/DL Alkaline Phosphatase 121 U/L Aspartate Amino Transf (AST/SGOT) 11 U/L Alanine Aminotransferase (ALT/SGPT) 17 U/L Total Bilirubin 0.3 MG/DL Sodium Level 143 MEQ/L Potassium Level 3.6 MEQ/L Chloride Level 108 MEQ/L Carbon Dioxide Level 29.3 MEQ/L Anion Gap 6 MEQ/L Estimat Glomerular Filtration Rate 76 ML/MIN Hemoglobin A1c 5.9 % Free Thyroxine 0.74 NG/DL Thyroid Stimulating Hormone 3rd Gen 1.640 uIU/ML Assessment and Plan Problem List: (1) Acute coronary syndrome ICD Codes: I24.9 - Acute ischemic heart disease, unspecified (2) Atypical chest pain ICD Codes: R07.89 - Other chest pain Status: Acute Assessment and Plan 51 yo M with CAD, afib, HTN and cardiomyopathy with AICD in place presented with chest pain; stress test abnormal CAD- cardiac cath showed mild amount of obstructive CAD. cardiomyopathy- non-ischemic. CHF- well-compensated follow up with outpatient cardiology. Xochitl Garza Apr 24, 2017 08:27
[2017-04-24] MEDS: FERROUS SULFATE 325 MG (65 MG ELEMENTAL IRON) TAB PO SCH (08:57)
[2017-04-24] MEDS: CLOPIDOGREL 75 MG TAB PO SCH (08:57)
[2017-04-24] MEDS: METOPROLOL TARTRATE 50 MG TAB PO SCH (08:57)
[2017-04-24] MEDS: ASPIRIN 325 MG TAB PO SCH (08:57)
[2017-04-24] MEDS: ALLOPURINOL 300 MG TAB PO SCH (08:57)
[2017-04-24] MEDS: LISINOPRIL 5 MG TAB PO SCH (08:58)
[2017-04-24] MEDS: DOCUSATE SODIUM 50 MG/SENNA 8.6 MG TAB PO SCH (08:58)
[2017-04-24] MEDS: FOLIC ACID 1 MG TAB PO SCH (08:58)
[2017-04-24] MEDS: SPIRONOLACTONE 25 MG TAB PO SCH (08:58)
[2017-04-24] MEDS: DULoxetine HCl DR 60 MG CAP PO SCH (08:58)
[2017-04-24] MEDS: SODIUM CHLORIDE 0.9% FLUSH 10 ML FLUSH IV FLUSH SCH (08:59)
--- NOTE | 2017-04-24 09:41 | HHI.PR ---
Subjective Remarks Walking around the [place]. Says he feels fine. Denies any chest pain or shortness of breath. Objective Vital Signs Date Time Temp Pulse Resp B/P (MAP) Pulse Ox O2 Delivery O2 Flow Rate FiO2 04/24/17 08:00 97.5 93 20 111/61 (78) 93 04/24/17 05:23 97 21 04/24/17 04:00 97.7 85 18 97/54 (68) 94 04/24/17 03:56 90 04/24/17 00:40 75 04/24/17 00:00 97.9 76 18 114/63 (80) 94 04/23/17 20:00 97.5 92 18 99/48 (65) 95 04/23/17 12:00 97.3 65 18 133/62 (85) 96 I/O 04/23/17 04/23/17 04/23/17 04/24/17 04/24/17 04/24/17 07:00 15:00 23:00 07:00 15:00 23:00 Intake Total 0 ml Output Total 950 ml Balance -950 ml Intake Oral 0 ml Output Urine Total 950 ml # Voids 2 # Bowel Movements 0 Result Diagram: 04/22/17 0507 04/22/17 0507 Objective Remarks GENERAL: Patient walking in [place]. SKIN: Warm and dry. HEAD: Normocephalic. EYES: No scleral icterus. No injection or drainage. NECK: No JVD. MUSCULOSKELETAL: No cyanosis, or edema. A/P Assessment and Plan 51-year-old male admitted secondary to chest pain //Chest pain //Angina //Suspected acute coronary syndrome //Congestive heart failure //CAD Patient failed stress test Cardiology following History of ejection fraction 26% Continue Plavix = Plan for cardiac catheterization this afternoon as per cardiology. Appreciate assistance. = 04/24. Cardiac catheter negative for significant coronary artery disease. Follow with cardiology as outpatient. //Hyperlipidemia Continue statin //Chronic back pain No change to baseline treatment //COPD No exacerbation Continue duo nebs //Severe obesity Continue to work at weight loss Discharge Planning Cleared by cardiology. Discharge home today. Patient says he does not have a ride until afternoon. I offered him transportation, however he says his friend (ride) has the house Jose Pettit MD Apr 24, 2017 09:41
--- NOTE | 2017-04-24 09:44 | HHI.DS ---
Discharge Summary Admission Date Apr 22, 2017 at 13:52 Discharge Date: Apr 24, 2017 Admitting Diagnosis Chest pain r/o ME (1) Atypical chest pain ICD Code: R07.89 - Other chest pain Status: Acute Procedures cardiac catheterization. Please see report. Brief History - From Admission This is a 51-year-old male that presents to ED via [facility] from work with history of cardiomyopathy with defibrillator, hyperlipidemia, chronic back pain, obesity with a complaint of chest discomfort. Patient states he was sitting at his desk when this discomfort began. Describes as a left-sided throbbing. 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 States he was given 2 sprays of nitroglycerin by [facility] without relief of symptoms. States the symptoms finally resolved after getting IV pain medication in the ED. Believes symptoms last about one hour. Denies shortness of breath, nausea, or diaphoresis. Found nothing to worsen the symptoms. Only the IV pain medicine seemed to have helped. States he has had 2 nuclear stress test this year. One was in June in [place] and the other one was in September. He states both were normal. The stress test in September was for cardiac clearance to have hip replacement. Defibrillator is placed January 2010. States that he is only had 1 cardiac catheterization and that was in 2001 and states that he had no blockages. Denies recent illnesses. Denies fevers or chills. Has noticed some swelling in his right leg over last few days. No pain. CBC/BMP: 04/22/17 0507 04/22/17 0507 Significant Findings Laboratory Tests Test 04/22/17 05:07 Red Blood Count 4.49 MIL/MM3 (4.50-5.90) Hemoglobin 10.7 GM/DL (13.0-17.0) Hematocrit 34.8 % (39.0-51.0) Mean Corpuscular Volume 77.5 FL (80.0-100.0) Mean Corpuscular Hemoglobin 23.8 PG (27.0-34.0) Mean Corpuscular Hemoglobin Concent 30.7 % (32.0-36.0) Red Cell Distribution Width 19.2 % (11.6-17.2) Neutrophils (%) (Auto) 70.7 % (16.0-70.0) Monocytes (%) (Auto) 10.9 % (0.0-8.0) Lymphocytes # (Auto) 0.9 TH/MM3 (1.0-4.8) Total Protein 6.2 GM/DL (6.4-8.2) Albumin 2.8 GM/DL (3.4-5.0) Calcium Level 8.1 MG/DL (8.5-10.1) Alkaline Phosphatase 121 U/L (45-117) Aspartate Amino Transf (AST/SGOT) 11 U/L (15-37) Chloride Level 108 MEQ/L (98-107) Estimat Glomerular Filtration Rate 76 ML/MIN (>89) Free Thyroxine 0.74 NG/DL (0.76-1.46) Imaging Last Impressions Myocardial Perfusion Scan Nuc Med 04/21/17 0000 Signed Impressions: Service Date/Time: Friday, April 21, 2017 09:50 - CONCLUSION: 1. Redemonstration of dilated ventricle with global hypokinesia. EF of 32%%. 2. 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 RISK CATEGORY: High (>3%% Annual Mortality Rate) Skyler Valle MD Chest X-Ray 04/20/17 1526 Signed Impressions: Service Date/Time: Thursday, April 20, 2017 15:43 - CONCLUSION: 1. Compensated cardiomegaly. Skyler Valle MD Lower Extremity Ultrasound 04/20/17 0000 Signed Impressions: Service Date/Time: Thursday, April 20, 2017 17:46 - CONCLUSION: No evidence of deep venous thrombosis within the right lower extremity. Brad Manzo MD CT Angiography 04/20/17 0000 Signed Impressions: Service Date/Time: Thursday, April 20, 2017 18:57 - CONCLUSION: 1. No evidence of pulmonary embolism. 2. Cardiomegaly and coronary artery calcifications. 3. Mild degenerative changes and scoliosis of the thoracic spine are noted. Brad Manzo MD Hospital Course Chest x-ray with no acute abnormalities. EKG no acute changes. Troponin undetectable. CT pulmonary and gram-negative for pulmonary embolism. Myocardial perfusion scan showednew focal reversible defect in the anterior wall near the base. Cardiology was consulted. Patient underwent cardiac catheterization which did not show significant coronary artery disease. Chest pain resolved. Patient was discharged home to follow-up with cardiology as outpatient. Problem-based summary from most recent progress note, please see below. 51-year-old male admitted secondary to chest pain //Chest pain //Angina //Suspected acute coronary syndrome //Congestive heart failure //CAD Patient failed stress test Cardiology following History of ejection fraction 26% Continue Plavix = Plan for cardiac catheterization this afternoon as per cardiology. Appreciate assistance. = 04/24. Cardiac catheter negative for significant coronary artery disease. Follow with cardiology as outpatient. //Hyperlipidemia Continue statin //Chronic back pain No change to baseline treatment //COPD No exacerbation Continue duo nebs //Severe obesity Continue to work at weight loss Discharge Planning Cleared by cardiology. Discharge home today. Patient says he does not have a ride until afternoon. I offered him transportation, however he says his friend (ride) has the house keys Pt Condition on Discharge: Good Discharge Disposition: Discharge Home Discharge Time: <= 30 minutes Discharge Instructions DIET: Follow Instructions for: Heart Healthy Diet Activities you can perform: Regular-No Restrictions Follow up Referrals: Cardiology - 1 Week with Minor,Henrik Jimenez MD PCP Follow-up - 1 Week Continued Medications: Allopurinol (Allopurinol) 300 Mg Tab 300 MG PO DAILY for Gout, #30 TAB 0 Refills Atorvastatin (Atorvastatin) 20 Mg Tab 20 MG PO HS for Cholesterol Management, #30 TAB 0 Refills Clopidogrel (Plavix) 75 Mg Tab 75 MG PO DAILY for Blood Clot Prevention, #30 TAB [address] (Duloxetine DR) 60 Mg Capdr 60 MG PO DAILY, #30 CAP 0 Refills Ferrous Sulfate (Ferrous Sulfate) 325 Mg (65 Mg Iron) Tablet 325 MG PO DAILY for Nutritional Supplement, #30 TAB 0 Refills Folic Acid (Folic Acid) 0.8 Mg Tab 800 MCG PO DAILY for Nutritional Supplement, TAB 0 Refills Lisinopril (Lisinopril) 2.5 Mg Tab 2.5 MG PO DAILY, #30 TAB 0 Refills Metoprolol Tartrate (Metoprolol Tartrate) 50 Mg Tab 50 MG PO BID, #60 TAB 0 Refills Montelukast (Montelukast) 10 Mg Tab 10 MG PO HS, #30 TAB 0 Refills Oxycodone (Oxycodone) 20 Mg Tab 20 MG PO Q4HR PRN for PAIN, TAB 0 Refills Spironolactone (Spironolactone) 25 Mg Tab 25 MG PO DAILY, #30 TAB 0 Refills Tizanidine (Tizanidine) 4 Mg Cap 8 MG PO DAILY for Muscle Spasm, CAP 0 Refills Trazodone (Trazodone) 150 Mg Tablet 150 MG PO HS for Control Depression, #30 TAB 0 Refills Jose Diaz MD Apr 24, 2017 09:44
== END 2017-04-24 14:07 | disposition home or self-care (01) | DRG 287 ==
LOC: NEPC 15:02 → NEDA 19:56 → NEPHCDU 20:43 → OBSVTOIN 04-22 13:52 → N04A 04-22 19:20
PROVIDERS: ADMIT Internal Medicine; ATTEND Internal Medicine
PROC: B2111ZZ Fluoroscopy of Multiple Coronary Arteries using Low Osmolar Contrast (ICD-10-PCS; 2017-04-23)
PROC: 4A023N7 Measurement of Cardiac Sampling and Pressure, Left Heart, Percutaneous Approach (ICD-10-PCS; principal; 2017-04-23 14:45)
DX: I24.9 Acute ischemic heart disease, unspecified (principal); I42.9 Cardiomyopathy, unspecified; I11.0 Hypertensive heart disease with heart failure; I50.9 Heart failure, unspecified; Z86.74 Personal history of sudden cardiac arrest; Z68.42 Body mass index [BMI] 45.0-49.9, adult; E66.01 Morbid (severe) obesity due to excess calories; I25.119 Atherosclerotic heart disease of native coronary artery with unspecified angina pectoris; E78.5 Hyperlipidemia, unspecified; G89.29 Other chronic pain; M54.9 Dorsalgia, unspecified; J44.9 Chronic obstructive pulmonary disease, unspecified; E11.9 Type 2 diabetes mellitus without complications; G47.33 Obstructive sleep apnea (adult) (pediatric); I44.7 Left bundle-branch block, unspecified; Z96.643 Presence of artificial hip joint, bilateral; I48.0 Paroxysmal atrial fibrillation; Z86.73 Personal history of transient ischemic attack (TIA), and cerebral infarction without residual deficits; Z95.0 Presence of cardiac pacemaker; Z95.810 Presence of automatic (implantable) cardiac defibrillator; I25.2 Old myocardial infarction; Z98.84 Bariatric surgery status
CPT/HCPCS: 71010; 71275; 78452; 80048; 80053; 82550; 83036; 83735; 84100; 84439; 84443; 84484; 85025; 85379; 85610; 85730; 93005; 93017; 93458; 93971; 94640; 94664; 99152; A9502; C1769; C1893; G8987-GP; G8988-GP; J1200; J1644; J2250; J2270; J2785; J3010; Q9967